=== PATIENT | female | born 1940 | race Caucasian/White ===

== ENCOUNTER 2019-04-08 21:11 | Inpatient (IN) | payer MEDICAID, OTHER ==
[~2019-04-08] VITALS: Ht 167.6 cm; Wt 57.6 kg
[2019-04-08] MEDS ORDERED: ONDANSETRON HCL 4MG/2ML INJ IV STA (23:18)
[2019-04-08] MEDS ORDERED: METOPROLOL TARTRATE 25MG TABLET PO ONE (23:30)
[2019-04-08] MEDS ORDERED: ASPIRIN 81MG TABLET PO ONE (23:30)
[2019-04-08 23:59] LABS: BASOPHILS % 0.4 % (0.0-2.0); EOSINOPHILS % 2.3 % (0.0-5.0); HEMOGLOBIN. 12.1 g/dL (12.0-16.0); LYMPHOCYTES % 16.1 % (20.0-50.0); MEAN CORPUSCULAR HEMOGLOBIN 32.2 pg (28.0-32.0); MEAN CORPUSCULAR VOLUME 93.5 fL (81.0-99.0); MEAN PLATELET VOLUME 8.2 fl (7.4-10.4); MONOCYTES % 5.8 % (2.0-8.0); NEUTROPHILS % 75.4 % (40.0-76.0); PLATELET 245 x1000/uL (130-400); RED BLOOD CELL COUNT 3.74 mill/uL (4.2-5.4); RED CELL DISTRIBUTION WIDTH 13.5 % (11.6-14.6)
[2019-04-09 00:02] LABS: PARTIAL THROMBOPLASTIN TIME 28.2 sec (23.4-31.0); PROTHROMBIN TIME 10.8 sec (9.6-11.0)
[2019-04-09 00:07] LABS: CHLORIDE 106 mEq/L (98-107)
[2019-04-09 01:06] LABS: CLARITY URINE CLEAR (CLEAR); COLOR URINE YELLOW (YELLOW); KETONES URINE NEGATIVE (NEGATIVE); LEUKOCYTE ESTERASE URINE NEGATIVE (NEGATIVE); NITRITE URINE NEGATIVE (NEGATIVE); OCCULT BLOOD URINE NEGATIVE (NEGATIVE); PH URINE 5.5 (4.5-8.0); PROTEIN URINE NEGATIVE (NEGATIVE); SPECIFIC GRAVITY URINE 1.016 (1.005-1.030); UROBILINOGEN URINE 0.2 E.U./dL (0.2-1.0)
[2019-04-09] MEDS ORDERED: MORPHINE SULFATE 2 MG/ML CPJ (NOT FOR IM USE) IV PRN (13:45)
[2019-04-09] MEDS ORDERED: ONDANSETRON HCL 4MG/2ML INJ IV PRN (13:45)
[2019-04-09] MEDS ORDERED: DOCUSATE SODIUM 100MG CAPSULE PO PRN (13:45)
[2019-04-09] MEDS ORDERED: NITROGLYCERIN 0.4MG TABLET SL SL PRN (13:45)
[2019-04-09] MEDS ORDERED: CLONIDINE 0.1MG TABLET PO PRN (13:45)
[2019-04-09] MEDS ORDERED: GUAIFENESIN 200MG/10ML SUGAR FREE UDC PO PRN (13:45)
[2019-04-09] MEDS ORDERED: LORAZEPAM 0.5MG TABLET PO PRN (13:45)
[2019-04-09] MEDS ORDERED: HYDROCODONE/ACETAMINOPHEN 5/325MG TABLET PO PRN (13:45)
[2019-04-09] MEDS ORDERED: IPRATROPIUM/ALBUTEROL 0.5-3(2.5)MG/3ML NEB HHN PRN (13:45)
[2019-04-09] MEDS: METOPROLOL TARTRATE 25MG TABLET PO SCH ×2 (16:06→23:34)
[2019-04-09] MEDS: LISINOPRIL 2.5MG TABLET PO SCH (16:46)
[2019-04-09 18:21] LABS: LDL CHOLESTEROL 122 mg/dL (5-100)
[2019-04-09 18:23] LABS: HDL CHOLESTEROL 45 mg/dL (40-59)
[2019-04-09 21:10] VITALS: BP 157/68
[2019-04-09] MEDS ORDERED: DEXTROSE 50% WATER 50ML SYRINGE IV PRN (23:45)
[2019-04-10] VITALS: BP 115/69
[2019-04-10 04:00] VITALS: BP 119/75
[2019-04-10 06:04] LABS: CHLORIDE 108 mEq/L (98-107)
[2019-04-10] MEDS: BLOOD SUGAR DIAGNOSTIC STRIP TEST SCH ×4 (07:40→20:54)
[2019-04-10 08:00] VITALS: BP 131/74
[2019-04-10] MEDS: INSULIN LISPRO 100 UNITS/ML SUBCUT SCH ×4 (08:10→20:53)
[2019-04-10 08:20] LABS: BASOPHILS % 1.2 % (0.0-2.0); EOSINOPHILS % 2.1 % (0.0-5.0); HEMATOCRIT. 34.5 % (36.0-48.0); LYMPHOCYTES % 14.9 % (20.0-50.0); MEAN CORPUSCULAR HEMOGLOBIN 32.8 pg (28.0-32.0); MEAN CORPUSCULAR VOLUME 94.2 fL (81.0-99.0); MEAN PLATELET VOLUME 7.5 fl (7.4-10.4); MONOCYTES % 6.9 % (2.0-8.0); NEUTROPHILS % 74.9 % (40.0-76.0); PLATELET 237 x1000/uL (130-400); RED BLOOD CELL COUNT 3.67 mill/uL (4.2-5.4); RED CELL DISTRIBUTION WIDTH 13.4 % (11.6-14.6)
[2019-04-10] MEDS: LISINOPRIL 2.5MG TABLET PO SCH (10:10)
[2019-04-10] MEDS: ACETAMINOPHEN 325MG TABLET PO PRN (10:10)
[2019-04-10] MEDS: ASPIRIN 81MG TABLET PO SCH (10:10)
[2019-04-10] MEDS: METOPROLOL TARTRATE 25MG TABLET PO SCH ×2 (10:11→20:53)
[2019-04-10 12:00] VITALS: BP 112/76
[2019-04-10 16:00] VITALS: BP 123/66
[2019-04-10 20:00] VITALS: BP 112/59
[2019-04-11] VITALS: BP 141/94
[2019-04-11 04:00] VITALS: BP 125/71
[2019-04-11 07:05] LABS: CHLORIDE 107 mEq/L (98-107)
[2019-04-11 07:19] LABS: HEMATOCRIT. 33.9 % (36.0-48.0); MEAN CORPUSCULAR VOLUME 93.4 fL (81.0-99.0); MEAN PLATELET VOLUME 8.1 fl (7.4-10.4); PLATELET 227 x1000/uL (130-400); RED BLOOD CELL COUNT 3.63 mill/uL (4.2-5.4)
[2019-04-11] MEDS: BLOOD SUGAR DIAGNOSTIC STRIP TEST SCH (07:40)
[2019-04-11 08:00] VITALS: BP 135/78
[2019-04-11] MEDS: INSULIN LISPRO 100 UNITS/ML SUBCUT SCH (08:10)
[2019-04-11] MEDS: LISINOPRIL 2.5MG TABLET PO SCH (08:57)
[2019-04-11] MEDS: ACETAMINOPHEN 325MG TABLET PO PRN (08:57)
[2019-04-11] MEDS: ASPIRIN 81MG TABLET PO SCH (08:58)
[2019-04-11] MEDS: METOPROLOL TARTRATE 25MG TABLET PO SCH (08:58)
[2019-04-11 12:00] VITALS: BP 108/53
[2019-04-11] MEDS ORDERED: METO25TA6 PO (12:28)
[2019-04-11] MEDS ORDERED: LISI2.5T47 PO (12:28)
[2019-04-11] MEDS ORDERED: ASPI-1160 PO (12:28)
[2019-04-11 12:31] VITALS: BP 108/53
[2019-04-11 17:38] LABS: PLATELET ESTIMATE NORMAL
== END 2019-04-11 13:40 | disposition home or self-care (01) | DRG 198 ==
LOC: ER 21:11 → 7WST 04-09 01:47 → EDBD 04-09 01:47 → EDBEDREQDT 04-09 01:50 → EDBEDREQ 04-09 01:50 → EDBEDREQTM 04-09 01:50 → ENRESERV 04-09 20:32
PROVIDERS: ADMIT Internal Medicine; ATTEND Internal Medicine
DX: I20.9 Angina pectoris, unspecified (principal); I48.20 Chronic atrial fibrillation, unspecified; E11.9 Type 2 diabetes mellitus without complications; I45.10 Unspecified right bundle-branch block; I10 Essential (primary) hypertension; M19.90 Unspecified osteoarthritis, unspecified site; M79.606 Pain in leg, unspecified; R06.02 Shortness of breath; R10.13 Epigastric pain; R51 Headache; R74.0 Nonspecific elevation of levels of transaminase and lactic acid dehydrogenase [LDH]; R79.89 Other specified abnormal findings of blood chemistry; R81 Glycosuria; Z86.73 Personal history of transient ischemic attack (TIA), and cerebral infarction without residual deficits; Z95.0 Presence of cardiac pacemaker; Z88.5 Allergy status to narcotic agent; Z79.899 Other long term (current) drug therapy; Z79.01 Long term (current) use of anticoagulants
CPT/HCPCS: 36415; 71045; 80048; 80053; 80061; 81003; 82962; 83036; 83880; 84484; 85025; 93005; 93306; 96374; 99285; J1815; J2405